=== PATIENT | male | born 1965 | race Caucasian/White ===

== ENCOUNTER 2016-10-22 13:28 | Inpatient (IN) | payer SELFPAY ==
[~2016-10-22] VITALS: Ht 185.4 cm; Wt 129.3 kg
[2016-10-22] MEDS ORDERED: IPRATRPIUM/ALBUTEROL 0.5/2.5MG 3 ML NEBU. NEB ONE (14:30)
--- NOTE | 2016-10-22 14:51 | PHYS DOC ---
Past Medical History Past Medical History: Diabetes-Type II, GERD, Hypertension Past Surgical History: Tonsillectomy, Other Additional Past Surgical Histo: Ortho, heart cath Alcohol Use: Occasionally Drug Use: None Adult General Chief Complaint Chief Complaint: CHEST PAIN-NON CARDIAC NATURE HPI HPI Patient is a 51 year old male who presents with complaint of cough and shortness of breath for the past 2 days. Patient states he first started noticing cough 2 days ago with production of yellow green sputum. Patient states that he started getting problems with pain along the left side of his chest starting today which is present only with cough. Patient has history of COPD. Patient states that he has been trying breathing treatments at home with no relief in symptoms. Patient also states that he has been having subjective fevers, chills, and myalgias associated with his symptoms. Patient denies any recent travel or sick contacts. Due to worsening symptoms patient came to the emergency department for further evaluation. Patient states that he took albuterol earlier this morning with minimal relief in symptoms. Patient denies pain with deep inspiration. Review of Systems Review of Systems Constitutional: Subjective fevers [] Eyes: Denies change in visual acuity, redness, or eye pain [] HENT: Denies nasal congestion or sore throat [] Respiratory: Productive cough, shortness of breath [] Cardiovascular: Chest pain, edema [] GI: Denies abdominal pain, nausea, vomiting, bloody stools or diarrhea [] : Denies dysuria or hematuria [] Musculoskeletal: Body aches [] Integument: Denies rash or skin lesions [] Neurologic: Denies headache, focal weakness or sensory changes [] Current Medications Current Medications Current Medications Medications (Trade) Dose Ordered Sig/Kelsy Start Time Stop Time Status Last Admin Dose Admin Albuterol/ Ipratropium (Duoneb) 3 ml STK-MED ONCE 10/22/16 15:08 10/22/16 15:09 DC Furosemide (Lasix) 60 mg 1X ONCE 10/22/16 16:15 10/22/16 16:16 DC 10/22/16 16:30 60 MG Allergies Allergies Allergies Coded Allergies Type Severity Reaction Last Updated Verified No Known Drug Allergies 01/23/14 No Physical Exam Physical Exam Constitutional: Alert, afebrile, appears in mild to moderate respiratory distress. [] HENT: Normocephalic, atraumatic, bilateral external ears normal, oropharynx moist, no oral exudates, nose normal. [] Eyes: PERRLA, EOMI, conjunctiva normal, no discharge. [] Neck: Normal range of motion, no tenderness, supple, no stridor. [] Cardiovascular: Tachycardia, regular rhythm, no murmur [] Lungs & Thorax: Restricted air movement bilaterally, expiratory wheezes bilaterally, no rales [] Abdomen: Bowel sounds normal, soft, no tenderness, no masses, no pulsatile masses. [] Skin: Warm, dry, no erythema, no rash. [] Back: No tenderness, no CVA tenderness. [] Extremities: No tenderness, no cyanosis, no clubbing, ROM intact, 1+ pedal edema bilaterally. [] Neurologic: Alert and oriented X 3, normal motor function, normal sensory function, no focal deficits noted. [] Current Patient Data Vital Signs Vital Signs Date Time Temp Pulse Resp B/P (MAP) Pulse Ox O2 Delivery O2 Flow Rate FiO2 10/22/16 15:51 98 25 150/87 (108) 97 10/22/16 15:12 Room Air 10/22/16 14:15 98.2 98.2 Lab Values Laboratory Tests Test 10/22/16 14:50 White Blood Count 9.7 x10^3/uL (4.0-11.0) Red Blood Count 4.33 x10^6/uL (4.30-5.70) Hemoglobin 13.4 g/dL (13.0-17.5) Hematocrit 38.3 % (39.0-53.0) L Mean Corpuscular Volume 88 fL (79-100) Mean Corpuscular Hemoglobin 31 pg (25-35) Mean Corpuscular Hemoglobin Concent 35 g/dL (31-37) Red Cell Distribution Width 14.9 % (11.5-14.5) H Platelet Count 209 x10^3/uL (140-400) Neutrophils (%) (Auto) 74 % (31-73) H Lymphocytes (%) (Auto) 16 % (24-48) L Monocytes (%) (Auto) 4 % (0-9) Eosinophils (%) (Auto) 5 % (0-3) H Basophils (%) (Auto) 1 % (0-3) Neutrophils # (Auto) 7.2 x10^3uL (1.8-7.7) Lymphocytes # (Auto) 1.5 x10^3/uL (1.0-4.8) Monocytes # (Auto) 0.4 x10^3/uL (0.0-1.1) Eosinophils # (Auto) 0.5 x10^3/uL (0.0-0.7) Basophils # (Auto) 0.1 x10^3/uL (0.0-0.2) Sodium Level 143 mmol/L (136-145) Potassium Level 3.4 mmol/L (3.5-5.1) L Chloride Level 106 mmol/L (98-107) Carbon Dioxide Level 27 mmol/L (21-32) Anion Gap 10 (6-14) Blood Urea Nitrogen 10 mg/dL (8-26) Creatinine 1.3 mg/dL (0.7-1.3) Estimated GFR (Cockcroft-Gault) 58.0 BUN/Creatinine Ratio 8 (6-20) Glucose Level 176 mg/dL (70-99) H Lactic Acid Level 2.5 mmol/L (0.4-2.0) H Calcium Level 8.9 mg/dL (8.5-10.1) Total Bilirubin 1.1 mg/dL (0.2-1.0) H Aspartate Amino Transferase (AST) 28 U/L (15-37) Alanine Aminotransferase (ALT) 28 U/L (16-63) Alkaline Phosphatase 81 U/L (46-116) Creatine Kinase 175 U/L (39-308) Creatine Kinase MB (Mass) 1.9 ng/mL (0.0-3.6) Creatine Kinase MB Relative Index 1.1 % (0-4) Troponin I Quantitative < 0.017 ng/mL (0.000-0.055) QY-Jbo-Q-Type Natriuretic Peptide 3034 pg/mL (0-124) H Total Protein 7.3 g/dL (6.4-8.2) Albumin 3.7 g/dL (3.4-5.0) Albumin/Globulin Ratio 1.0 (1.0-1.7) Influenza Type A Antigen Negative (NEGATIVE) Influenza Type B Antigen Negative (NEGATIVE) Laboratory Tests 10/22/16 14:50 Laboratory Tests 10/22/16 14:50 EKG EKG Interpreted by me: Heart rate 110, sinus tachycardia, normal intervals, normal axis, no acute ST/T-wave abnormalities present [] Radiology/Procedures Radiology/Procedures [facility] [address] [place] [address] IMAGING REPORT Signed PATIENT: JOAN ALLRED ACCOUNT: [id number] : 1965 LOCATION: ER AGE: 51 SEX: M EXAM STATUS: REG ER ORD. PHYSICIAN: ADRIENNE PEREZ MD REASON: cough and shortness of breath for 2 days PROCEDURE: CHEST PA & LATERAL Examination: 2 views of the chest History: History of cough, chest tightness Comparison: 02/25/2015 Findings: Mild cardiomegaly is unchanged. Mild prominent appearing bilateral interstitial lung markings similar to prior exam , probably due to chronic bronchitis. Impression: Mild prominent appearing bilateral interstitial lung markings probably chronic bronchitis grossly similar to prior exam. DICTATED and SIGNED BY: ISABEL THAYER MD DATE: 10/22/16 1505 CC: ADRIENNE PEREZ MD; TESS LESTER MD ~ [] Course & Med Decision Making Course & Med Decision Making Pertinent Labs and Imaging studies reviewed. (See chart for details) The patient was given DuoNeb breathing treatments with no improvement in symptoms. Patient's chest x-ray, exam, and blood work are consistent with acute on chronic congestive heart failure. Patient given IV Lasix in the emergency department. Due to minimal improvement in symptoms, the patient will require admission to the hospital for continued diuresis and further evaluation. I spoke with Dr. Aguilar who accepted care patient in hospital. Consults were placed to Dr. Haq of cardiology and Dr. Almanzar of pulmonology to follow patient in hospital. Dragon Disclaimer Dragon Disclaimer This electronic medical record was generated, in whole or in part, using a voice recognition dictation system. Departure Departure Impression: Primary Impression: Acute on chronic congestive heart failure Additional Impressions: COPD (chronic obstructive pulmonary disease) Elevated lactic acid level Disposition: ADMITTED INPATIENT Admitting Physician: Other Condition: STABLE Referrals: TESS LESTER MD (PCP) Problem Qualifiers Primary Impression: Acute on chronic congestive heart failure Congestive heart failure type: unspecified congestive heart failure type Qualified Codes: I50.9 - Heart failure, unspecified Additional Impressions: COPD (chronic obstructive pulmonary disease) COPD type: COPD with acute exacerbation Qualified Codes: J44.1 - Chronic obstructive pulmonary disease with (acute) exacerbation ADRINENE PEREZ MD October 22, 2016 14:51
[2016-10-22 15:06] LABS: BASO # 0.1 x10^3/uL (0.0-0.2); BASO % 1 % (0-3); EOS % 5 % (0-3); HEMATOCRIT 38.3 % (39.0-53.0); HEMOGLOBIN 13.4 g/dL (13.0-17.5); LYMPH # 1.5 x10^3/uL (1.0-4.8); LYMPH % 16 % (24-48); MEAN CORPUSCULAR HEMOGLOBIN 31 pg (25-35); MEAN CORPUSCULAR HGB CONC 35 g/dL (31-37); MEAN CORPUSCULAR VOLUME 88 fL (79-100); MONO % 4 % (0-9); NEUT % 74 % (31-73); PLATELET COUNT 209 x10^3/uL (140-400); RED BLOOD COUNT 4.33 x10^6/uL (4.30-5.70); RED CELL DISTRIBUTION WIDTH 14.9 % (11.5-14.5); WHITE BLOOD COUNT 9.7 x10^3/uL (4.0-11.0)
[2016-10-22] MEDS ORDERED: IPRATRPIUM/ALBUTEROL 0.5/2.5MG 3 ML NEBU. ONE (15:08)
--- NOTE | 2016-10-22 15:09 | RAD ---
Examination: 2 views of the chest History: History of cough, chest tightness Comparison: 02/25/2015 Findings: Mild cardiomegaly is unchanged. Mild prominent appearing bilateral interstitial lung markings similar to prior exam , probably due to chronic bronchitis. Impression: Mild prominent appearing bilateral interstitial lung markings probably chronic bronchitis grossly similar to prior exam.
[2016-10-22 15:16] LABS: CALCIUM 8.9 mg/dL (8.5-10.1); CREATININE 1.3 mg/dL (0.7-1.3); POTASSIUM 3.4 mmol/L (3.5-5.1)
--- NOTE | 2016-10-22 15:20 | EKG ---
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
[2016-10-22 15:23] LABS: OBC FLU VALID
[2016-10-22 15:30] LABS: ALBUMIN 3.7 g/dL (3.4-5.0); CKMB MASS 1.9 ng/mL (0.0-3.6); TOTAL BILIRUBIN 1.1 mg/dL (0.2-1.0); TOTAL PROTEIN 7.3 g/dL (6.4-8.2)
[2016-10-22] MEDS ORDERED: FUROSEMIDE 100 MG/10 ML VIAL. IVP ONE (16:15)
[2016-10-22] MEDS ORDERED: ONDANSETRON PF 4 MG/2 ML VIAL. IV PRN (17:45)
[2016-10-22] MEDS ORDERED: ACETAMINOPHEN 325 MG TABLET. PO PRN (17:45)
[2016-10-22 18:11] VITALS: BP 140/84
[2016-10-22] MEDS ORDERED: FURO40TA4 PO (18:18)
[2016-10-22] MEDS ORDERED: ALBU0.63 NEB (18:18)
[2016-10-22] MEDS ORDERED: OMEP40CA5 PO (18:19)
[2016-10-22 19:43] VITALS: BP 131/87
[2016-10-22] MEDS: NICOTINE 21MG PATCH. TD SCH (19:58)
[2016-10-22] MEDS ORDERED: NON FORMULARY ITEM (Albuterol Sulfate (Albuterol Sulfate Neb Soln) 0.63 MG) NEB PRN (20:00)
[2016-10-22] MEDS ORDERED: ALBUTEROL SULFATE 2.5 MG/3 ML NEBU. NEB PRN (20:00)
[2016-10-22] MEDS: IPRATRPIUM/ALBUTEROL 0.5/2.5MG 3 ML NEBU. NEB SCH (20:09)
[2016-10-22] MEDS ORDERED: AZITHROMYCIN 250 MG TABLET. PO ONE (20:30)
--- NOTE | 2016-10-22 21:22 | HP ---
ADMIT DATE: 10/22/2016 CHIEF COMPLAINT: Chest pain, shortness of breath. HISTORY OF PRESENT ILLNESS: The patient is a 51-year-old obese smoker who presented to the Emergency Room with 2-day history of cough and shortness of breath. He relates that he has noted yellow-greenish sputum production, left side of his chest hurts a bit more. He relates that he frequently ends up in the Emergency Room albeit at different hospitals and typically gets IV Lasix with significant improvement of his symptoms. He states that "you guys have better Lasix that always makes me pee immediately." He knows he has CHF and COPD, but has no intentions of ever changing his diet including preferred barbecue and fried foods or stop smoking. PAST MEDICAL HISTORY: CHF, diabetes, hypertension, GERD, CAD. FAMILY HISTORY: Positive for heart failure in mother. SOCIAL HISTORY: Continues to smoke about half a pack a day. ALLERGIES: No known drug allergies. HOME MEDICATIONS: Reconciled with MAR. REVIEW OF SYSTEMS: Breathing is much improved since his IV Lasix in the Emergency Room. He is trying to order a pizza and soft drink from outside. PHYSICAL EXAMINATION: VITAL SIGNS: From today show a blood pressure of 150/87, heart rate of 98, respiratory rate at 25. He is afebrile. GENERAL: This is an obese 51-year-old gentleman, awake, alert, in no acute distress. HEENT: Shows no scleral icterus. NECK: Supple, without any JVD. LUNGS: With wheezes bilaterally. HEART: Tachycardic. ABDOMEN: Obese, positive bowel sounds, organs could not be palpated. EXTREMITIES: Show 1+ edema. SKIN: Warm, soft and dry. LABORATORY DATA: CBC with a WBC of 9.7, hemoglobin 13.4, platelets of 209. BUN and creatinine 10 and 1.3. Potassium at 3.4. LFTs within normal. ProBNP 3034. Initial troponin negative. Albumin at 3.7. Flu A and B are negative. IMAGING: Chest x-ray obtained shows mild cardiomegaly which is unchanged, mild prominent appearing bilateral interstitial lung mass, marking similar to prior exam. ASSESSMENT AND PLAN: The patient is a 51-year-old gentleman with apparently known CHF, although details unknown, who presents with shortness of breath. He did receive Lasix in the Emergency Room with some improvement of his symptoms. Cardiac as well as Pulmonary consult has been requested by ER. We will obtain echo. If symptoms are improved by tomorrow, plan on discharge to follow up with his regular healthcare management. SHRUTHI GAYTAN MD DR: UR/nts JOB#: [id number] / [id number] JUANA
[2016-10-22 22:15] VITALS: BP 135/97
[2016-10-23] VITALS (13 sets, daily range): BP systolic 114–140; BP diastolic 71–92
--- NOTE | 2016-10-23 00:14 | ACF ---
Admission Forms Criteria HEART FAILURE: COMMON COMPLICATIONS Clinical Indications for Inpatient Care (Place 'X' for any and all applicable criteria): Ongoing inpatient care may be indicated for heart failure with ANY ONE of the following (1)(2)(3)(4)(5): [ ]I. Ongoing need for care for primary condition requiring frequent therapy adjustments because of changes in cardiac function (eg, drug dosage changes for drugs that are renally metabolized) [ ]II. New-onset heart failure [ ]III. Heart failure with decreased urine output not responsive to attempts to optimize volume status [ ]IV. Acute cardiac ischemia causing or associated with failure [X ]V. Complications of heart failure, including ANY ONE of the following: [ ]a) Pericardial effusion [ ]b) Symptomatic pleural effusion [ ]c) O2 saturation <90% or PO2 < 60 mm Hg (8.0 kPa) on room air or require baseline supplemental O2 [X ]d) Tachypnea [X ]e) Dyspnea [ ]f) Syncope [ ]g) Change in mental status [ ]h) Acute renal insufficiency that is severe (reduction of more than 50% in estimated glomerular filtration rate from baseline) or progressive reduction of more than 25% in estimated glomerular filtration rate from baseline, with creatinine continuing to rise) [ ]i) Hemodynamic instability [ ]j) Anasarca [ ]k) Clinically significant metabolic abnormalities due to heart failure (eg, new-onset metabolic acidosis) Extended stay beyond goal length of stay for primary condition may be needed until ALL of the following are present(1)(3): [ ]a) Stable and effective diuretic regimen established (or patient on stable dialysis regimen if in chronic renal failure) [ ]b) Breathing comfortably at rest [ ]c) Saturation of arterial oxygen greater than 90% or at acceptable baseline [ ]d) Pulmonary edema absent or improved [ ]e) Hemodynamic stability [ ]f) Volume status acceptable on oral medication [ ]g) Peripheral or sacral edema absent or improved [ ]h) Renal function stable and manageable at a lower level of care [ ]i) Complications (eg, pleural effusion) resolved or manageable at a lower level of care [ ]j) Patient or caregiver has received written discharge instructions or educational material addressing activity level, diet, discharge medications, follow-up appointment, weight monitoring, and what to do if symptoms worsen The original [facility] content created by [employer] has been revised. The portions of the content which have been revised are identified through the use of italic text or in bold, and [facility] has neither reviewed nor approved the modified material.All other unmodified content is copyright [facility]. Please see references footnoted in the original [facility] edition 2016 Admission Criteria Met?: Yes JJ FONG October 23, 2016 00:14
[2016-10-23 05:05] LABS: BASO # 0.1 x10^3/uL (0.0-0.2); BASO % 1 % (0-3); EOS % 5 % (0-3); HEMATOCRIT 40.5 % (39.0-53.0); HEMOGLOBIN 13.8 g/dL (13.0-17.5); LYMPH # 2.2 x10^3/uL (1.0-4.8); LYMPH % 23 % (24-48); MEAN CORPUSCULAR HEMOGLOBIN 31 pg (25-35); MEAN CORPUSCULAR HGB CONC 34 g/dL (31-37); MEAN CORPUSCULAR VOLUME 90 fL (79-100); MONO % 6 % (0-9); NEUT % 65 % (31-73); PLATELET COUNT 221 x10^3/uL (140-400); RED BLOOD COUNT 4.51 x10^6/uL (4.30-5.70); RED CELL DISTRIBUTION WIDTH 15.3 % (11.5-14.5); WHITE BLOOD COUNT 9.2 x10^3/uL (4.0-11.0)
[2016-10-23 05:13] LABS: CALCIUM 9.3 mg/dL (8.5-10.1); CREATININE 1.4 mg/dL (0.7-1.3); GFR 53.2; POTASSIUM 3.8 mmol/L (3.5-5.1)
[2016-10-23] MEDS: PANTOPRAZOLE 40 MG TABLET.DR. PO SCH (07:30)
[2016-10-23] MEDS: IPRATRPIUM/ALBUTEROL 0.5/2.5MG 3 ML NEBU. NEB SCH ×3 (08:00→15:51)
[2016-10-23] MEDS: NICOTINE 21MG PATCH. TD SCH (08:24)
[2016-10-23] MEDS ORDERED: SULFUR HEXAFLUORIDE MICROSPHR 25 MG VIAL. IVP ONE ×2 (08:48→09:15)
[2016-10-23] MEDS ORDERED: FUROSEMIDE 40 MG TABLET. PO SCH (09:00)
[2016-10-23] MEDS ORDERED: NICOTINE 21MG PATCH. TD SCH (09:00)
--- NOTE | 2016-10-23 09:41 | CARD ---
APPROVED REPORT EXAM: Two-dimensional and M-mode echocardiogram with Doppler, color Doppler with contrast. Other Information Quality : Technically Limited Rhythm : NSRTechnically limited study due to body habitus. INDICATION Congestive Heart Failure Echo Enhancing Agent Indication: Endocardial border delineation Agent/Amount Used: Lumason 3mL 2D DIMENSIONS RVDd3.3 (2.9-3.5cm)Left Atrium(2D)4.7 (1.6-4.0cm) IVSd1.3 (0.7-1.1cm)Aortic Root(2D)3.4 (2.0-3.7cm) LVDd6.4 (3.9-5.9cm)LVOT Diameter2.4 (1.8-2.4cm) PWd1.3 (0.7-1.1cm)LVDs6.2 (2.5-4.0cm) FS (%) 4.3 %SV20.1 ml LVEF(%)9.5 (>50%) Aortic Valve AoV Peak Nathan.130.4cm/sAoV VTI21.2cm AO Peak GR.6.8mmHgLVOT Peak Nathan.99.4cm/s AO Mean GR.4mmHgAVA (VMAX)3.42cm2 Mitral Valve MV E Ffvwdxnp829.0cm/sMV E Peak Gr.6mmHg MV DECEL [id number] A Kejftiqj99.0cm/s MV E Mean Gr.2mmHgMV YOT37wu E/A Ratio3.3MV A Fthuqaqu286ed MVA (PHT)5.99cm2 Tricuspid Valve TR P. Xyvfyqmw786um/sRAP LWNSDPJP5oxMh TR Peak Gr.85pmZwWOOQ33svAp LEFT VENTRICLE The Left Ventricle is mildly dilated. There is borderline to mild concentric left ventricular hypertr ophy. Left ventricle systolic function is severely impaired. The Ejection Fraction is 10-15%. There i s severe global hypokinesis of the left ventricle. Tissue Doppler imaging reveals severe left ventric ular diastolic dysfunction. There is no ventricular septal defect visualized. RIGHT VENTRICLE The right ventricle is normal size. The right ventricular systolic function is mildly decreased. ATRIA The left atrium is mildly dilated. The right atrium size is normal. The interatrial septum is intact with no evidence for an atrial septal defect or patent foramen ovale as noted on 2-D or Doppler imagi ng. AORTIC VALVE The aortic valve is normal in structure and function. The aortic valve is trileaflet. Doppler and Col or Flow revealed no significant aortic regurgitation. There is no significant aortic valvular stenosi s. MITRAL VALVE The mitral valve is normal in structure and function. There is no mitral valve stenosis. Doppler and Color Flow revealed trace to mild mitral regurgitation. TRICUSPID VALVE The tricuspid valve is normal in structure and function. Doppler and Color Flow revealed trace tricus pid regurgitation. The PA pressure was estimated at 29 mmHg. There is no tricuspid valve stenosis. PULMONIC VALVE The pulmonic valve is not well visualized. Doppler and Color Flow revealed mild pulmonic valvular reg urgitation. There is no pulmonic valvular stenosis. GREAT VESSELS The aortic root is normal in size. The IVC is dilated and collapses >50% with inspiration. PERICARDIAL EFFUSION There is no evidence of significant pericardial effusion. Critical Notification Critical Value: No <Conclusion> Left ventricle systolic function is severely impaired. The Ejection Fraction is 10-15%. There is severe global hypokinesis of the left ventricle. Tissue Doppler imaging reveals severe left ventricular diastolic dysfunction.
--- NOTE | 2016-10-23 10:15 | PDOC2 ---
CLAUS PACHECO SHIPPING WEIGHER 10/23/16 1015: CARDIAC CONSULT DATE OF CONSULT Date of Consult DATE: 10/23/16 TIME: 10:14 REASON FOR CONSULT Reason for Consult: CHF REFERRING PHYSICIAN Referring Physician: Sybil SOURCE Source: Chart review, Patient HISTORY OF PRESENT ILLNESS HISTORY OF PRESENT ILLNESS This is a pleasant 51 yo male admitted for complains of SOA and chest pain. Reports that he was being followed by Dr. Dickson his PCP but he has not seen any physician since 2014. Reports that he also had cardiac cath in 2014 and was told that he did not have any blockage and that his heart was strong. Reports that he does have some intermittent SOA and he also has COPD but has not been using his PRN inhalers. Last Saturday he felt different and felt SOA with short distnace ambulation then finally even at rest. Positive for orthopnea, PND and has been having insomnia. Also he has been having mid chest tightness and left arm tingling. This has been intermittent since Saturday. Also woke up on Saturday with diaphoreis and occasional palpitations feeling mainly when walking. Feels dizzy sometimes. His legs has become significantly swollen and has been feeling bloated. Denies any nausea or vomiting. He has HTN and HLP but has not taken any medications since both have been controlled. He denies DM2. No prior VTE, falls or any injury. He continue to smoke tobacco. PAST MEDICAL HISTORY Cardiovascular: CHF, HTN, Hyperlipidemia Pulmonary: Asthma, COPD, Other (OMAR) CENTRAL NERVOUS SYSTEM: Other (No pertinent history) GI: GERD Heme/Onc: No pertinent hx Hepatobiliary: No pertinent hx Psych: No pertinent hx Musculoskeletal: Osteoarthritis Rheumatologic: No pertinent hx Infectious disease: No pertinent hx ENT: No pertinent hx Renal/: No pertinent hx Endocrine: No pertinent hx Dermatology: Other (extensive chun) PAST SURGICAL HISTORY Past Surgical History: Other (Cardiac cath 2014 at [facility], no blockage per pt. ) FAMILY HISTORY Family History: Coronary Artery Disease (father and mother) SOCIAL HISTORY Smoke: 2 packs per day ALCOHOL: occassional Drugs: None Lives: with Family CURRENT MEDICATIONS CURRENT MEDICATIONS Current Medications Medications (Trade) Dose Ordered Sig/Kelsy Route PRN Reason Start Time Stop Time Status Last Admin Dose Admin Albuterol/ Ipratropium (Duoneb) 6 ml 1X ONCE NEB 10/22/16 14:30 10/22/16 14:36 DC 10/22/16 14:30 Furosemide (Lasix) 60 mg 1X ONCE IVP 10/22/16 16:15 10/22/16 16:16 DC 10/22/16 16:30 Albuterol/ Ipratropium (Duoneb) 3 ml RTQID NEB 10/22/16 20:00 10/23/16 19:59 10/23/16 08:00 Furosemide (Lasix) 40 mg DAILY PO 10/23/16 09:00 10/23/16 08:23 Nicotine (Nicoderm Cq 21mg) 1 patch DAILY TD 10/22/16 20:00 10/23/16 08:24 Azithromycin (Zithromax) 500 mg 1X ONCE PO 10/22/16 20:30 10/22/16 20:31 DC 10/22/16 21:08 Sulfur Hexafluoride Microspheres (Lumason) 25 mg 1X ONCE IVP 10/23/16 09:15 10/23/16 09:16 DC 10/23/16 09:07 ALLERGIES ALLERGIES: Coded Allergies: No Known Drug Allergies (Unverified , 01/23/14) ROS Review of System 14 point ROS evaluated with pertinent positives noted per HPI PHYSICAL EXAM General: Alert, Oriented X3, Cooperative, No acute distress HEENT: Atraumatic, Mucous membr. moist/pink Lungs: Clear to auscultation, Normal air movement Heart: Regular rate (SR), Normal S1, Normal S2, Other (distant heart sounds) Extremities: No cyanosis, Other (2+ bilateral LE pitting edema) Skin: No breakdown, No significant lesion Neuro: Normal speech, Sensation intact Psych/Mental Status: Mental status NL, Mood NL MUSCULOSKELETAL: Osteoarthritic changes both hands VITALS VITALS Vital Signs Date Time Temp Pulse Resp B/P (MAP) Pulse Ox O2 Delivery O2 Flow Rate FiO2 10/23/16 08:04 Room Air 10/23/16 07:00 98.6 95 18 140/74 (96) 93 98.6 LABS Lab: Laboratory Tests Test 10/22/16 14:50 10/22/16 18:25 10/23/16 03:30 White Blood Count 9.7 x10^3/uL (4.0-11.0) 9.2 x10^3/uL (4.0-11.0) Red Blood Count 4.33 x10^6/uL (4.30-5.70) 4.51 x10^6/uL (4.30-5.70) Hemoglobin 13.4 g/dL (13.0-17.5) 13.8 g/dL (13.0-17.5) Hematocrit 38.3 % (39.0-53.0) 40.5 % (39.0-53.0) Mean Corpuscular Volume 88 fL (79-100) 90 fL (79-100) Mean Corpuscular Hemoglobin 31 pg (25-35) 31 pg (25-35) Mean Corpuscular Hemoglobin Concent 35 g/dL (31-37) 34 g/dL (31-37) Red Cell Distribution Width 14.9 % (11.5-14.5) 15.3 % (11.5-14.5) Platelet Count 209 x10^3/uL (140-400) 221 x10^3/uL (140-400) Neutrophils (%) (Auto) 74 % (31-73) 65 % (31-73) Lymphocytes (%) (Auto) 16 % (24-48) 23 % (24-48) Monocytes (%) (Auto) 4 % (0-9) 6 % (0-9) Eosinophils (%) (Auto) 5 % (0-3) 5 % (0-3) Basophils (%) (Auto) 1 % (0-3) 1 % (0-3) Neutrophils # (Auto) 7.2 x10^3uL (1.8-7.7) 5.9 x10^3uL (1.8-7.7) Lymphocytes # (Auto) 1.5 x10^3/uL (1.0-4.8) 2.2 x10^3/uL (1.0-4.8) Monocytes # (Auto) 0.4 x10^3/uL (0.0-1.1) 0.5 x10^3/uL (0.0-1.1) Eosinophils # (Auto) 0.5 x10^3/uL (0.0-0.7) 0.5 x10^3/uL (0.0-0.7) Basophils # (Auto) 0.1 x10^3/uL (0.0-0.2) 0.1 x10^3/uL (0.0-0.2) Sodium Level 143 mmol/L (136-145) 142 mmol/L (136-145) Potassium Level 3.4 mmol/L (3.5-5.1) 3.8 mmol/L (3.5-5.1) Chloride Level 106 mmol/L (98-107) 104 mmol/L (98-107) Carbon Dioxide Level 27 mmol/L (21-32) 31 mmol/L (21-32) Anion Gap 10 (6-14) 7 (6-14) Blood Urea Nitrogen 10 mg/dL (8-26) 12 mg/dL (8-26) Creatinine 1.3 mg/dL (0.7-1.3) 1.4 mg/dL (0.7-1.3) Estimated GFR (Cockcroft-Gault) 58.0 53.2 BUN/Creatinine Ratio 8 (6-20) Glucose Level 176 mg/dL (70-99) 127 mg/dL (70-99) Lactic Acid Level 2.5 mmol/L (0.4-2.0) 1.7 mmol/L (0.4-2.0) Calcium Level 8.9 mg/dL (8.5-10.1) 9.3 mg/dL (8.5-10.1) Total Bilirubin 1.1 mg/dL (0.2-1.0) Aspartate Amino Transf (AST/SGOT) 28 U/L (15-37) Alanine Aminotransferase (ALT/SGPT) 28 U/L (16-63) Alkaline Phosphatase 81 U/L (46-116) Creatine Kinase 175 U/L (39-308) Creatine Kinase MB (Mass) 1.9 ng/mL (0.0-3.6) Creatine Kinase MB Relative Index 1.1 % (0-4) Troponin I Quantitative < 0.017 ng/mL (0.000-0.055) KE-Ioo-X-Type Natriuretic Peptide 3034 pg/mL (0-124) Total Protein 7.3 g/dL (6.4-8.2) Albumin 3.7 g/dL (3.4-5.0) Albumin/Globulin Ratio 1.0 (1.0-1.7) Influenza Type A Antigen Negative (NEGATIVE) Influenza Type B Antigen Negative (NEGATIVE) ECHOCARDIOGRAM ECHOCARDIOGRAM <Conclusion> Left ventricle systolic function is severely impaired. The Ejection Fraction is 10-15%. There is severe global hypokinesis of the left ventricle. Tissue Doppler imaging reveals severe left ventricular diastolic dysfunction. DATE: 10/23/16 0940 ASSESSMENT/PLAN ASSESSMENT/PLAN 1. Acute systolic/diastolic CHF: NYHA 2-3 2. Cardiomyopathy: New. EKG SR with nonspecific ST-T wave changes with IVCD. EF 10-15%. 3. Chest pain 4. AECOPD: accentuated by CHF. Consult pulmonary 5. OMAR: noted in 2014 but would not use CPAP. 6. HTN: controlled. Unmedicated 7. HLP 8. GERD 9. Tobaccoism: remains with 2ppd 10. Obesity 11. Suspect CKD: Cr 1.4 Recommendations 1. Will lay flat and if tolerated then will proceed with [facility] today. Risks and benefits explained and agreeable 2. Repeat troponin, TSH, Mg. 3. Continue with lasix therapy. K supplement. ASA 4. Start on BB, will hold ACEi, likely candidate for entresto. 5. Will start on statin per lipid level. 6. Smoking cessation, lifestyle modifications discussed. Problems: HENOK SALINAS MD 10/23/16 1436: CARDIAC CONSULT ALLERGIES ALLERGIES: Coded Allergies: No Known Drug Allergies (Unverified , 01/23/14) ASSESSMENT/PLAN ASSESSMENT/PLAN Patient seen and examined. Agree with DENTAL SURGEON's assessment and plan. Chest pain concerning for unstable angina. Acute systolic heart failure improving with diuresis with Lasix. 2-D echo showed LVEF 10-15%. Plan for cardiac catheterization and possible angioplasty today. Risks and benefits were explained and he is agreeable. We will optimize medical therapy for his cardiomyopathy and repeat 2-D echo in 3 months. Thank you for your consultation. Problems: CLAUS PACHECO APRN October 23, 2016 10:15 HENOK SALINAS MD October 23, 2016 14:36
[2016-10-23 11:23] LABS: MAGNESIUM 2.3 mg/dL (1.8-2.4)
[2016-10-23 11:25] LABS: CHOLESTEROL/HDL RATIO 7.6
--- NOTE | 2016-10-23 11:50 | CONS ---
DATE OF CONSULTATION: ATTENDING PHYSICIAN: Akilah Aguilar MD. REASON FOR CONSULTATION: Dyspnea. HISTORY OF PRESENT ILLNESS: The patient is a 51-year-old male who has history of tobacco use for 26 years, at 2 packs per day. He also recently had marijuana use as well. He presented to the hospital with complaint of shortness of breath. He also had a 2-day history of a cough with some green sputum production. He had some subjective chills as well. The patient was seen in the Emergency Room. A chest x-ray was reviewed by me. It was consistent with mild interstitial edema. He had further workup done and an echocardiogram revealed an ejection fraction of 10-15%. Currently, he is requiring oxygen via nasal cannula. No history of deep vein thrombosis or pulmonary embolism. He said he previously was told that he had an ejection fraction, which was normal and had a cardiac catheterization done at [facility]. PAST MEDICAL HISTORY: Significant for history of congestive heart failure, diabetes, hypertension, GERD. FAMILY HISTORY: Positive for heart failure in the mother. SOCIAL HISTORY: Smoker for 26 years. ALLERGIES: None. MEDICATIONS: Reviewed as listed in the MRAD. ALLERGIES: None. REVIEW OF SYSTEMS: Discussed in history of present illness. PHYSICAL EXAMINATION: VITAL SIGNS: Stable. Pulse ox 93% on room air. NECK: Supple. LUNGS: Diminished breath sounds. CARDIOVASCULAR: Regular. ABDOMEN: Soft. EXTREMITIES: With no pitting edema. LABORATORY DATA: Reviewed. White cell count 9.2, BUN 12, creatinine 1.4. IMPRESSION: 1. Dyspnea with acute hypoxic respiratory failure related to acute systolic heart failure. The patient's ejection fraction is 10-15%. 2. Possible acute bronchitis. 3. Underlying tobaccoism, suspect chronic obstructive pulmonary disease. RECOMMENDATIONS: 1. Continue with diuresis. 2. Add empiric doxycycline. 3. Cardiac catheterization per Cardiology to rule out any coronary artery disease. 4. Further recommendations after review of cardiac catheterization. HAWK GONZÁLES MD DR: STEFANIE/kirk JOB#: [id number] / [id number]
[2016-10-23] MEDS: DOXYCYCLINE HYCLATE 100 MG TABLET PO SCH ×2 (12:00→20:50)
[2016-10-23] MEDS ORDERED: ASPIRIN ENTERIC COATED 81 MG TABLET.DR. PO SCH (12:00)
[2016-10-23] MEDS: POTASSIUM CHLORIDE 20 MEQ TABLET.ER. PO SCH (12:00)
[2016-10-23] MEDS: METOPROLOL TART IMMED RELEASE 25 MG TABLET. PO SCH ×2 (12:35→20:50)
[2016-10-23] MEDS ORDERED: LIDOCAINE 2% 20 ML VIAL. ONE (13:24)
[2016-10-23] MEDS ORDERED: IODIXANOL 320 MG/ML 100 ML VIAL. ONE ×2 (13:24→14:08)
[2016-10-23] MEDS ORDERED: NITROGLYCERIN 200 MCG/2 ML SYRINGE FOR CATH/VASC LAB. ONE (13:39)
[2016-10-23] MEDS ORDERED: HEPARIN for IV BOLUS 10,000 UNIT/10 ML VIAL. ONE (13:39)
[2016-10-23] MEDS ORDERED: MIDAZOLAM HCL/PF 5 MG/5 ML VIAL. ONE (13:39)
[2016-10-23] MEDS ORDERED: fentaNYL PF VIAL 100 MCG/2 ML VIAL ONE (13:39)
[2016-10-23] MEDS ORDERED: VERAPAMIL 5 MG/2 ML VIAL. ONE (13:39)
[2016-10-23] MEDS ORDERED: NITROGLYCERIN 200 MCG/2 ML SYRINGE FOR CATH/VASC LAB. IART ONE (14:00)
[2016-10-23] MEDS ORDERED: LIDOCAINE 2% 20 ML VIAL. IJ ONE (14:00)
[2016-10-23] MEDS ORDERED: MIDAZOLAM HCL/PF 5 MG/5 ML VIAL. IV ONE (14:00)
[2016-10-23] MEDS ORDERED: HEPARIN for IV BOLUS 10,000 UNIT/10 ML VIAL. IART ONE (14:00)
[2016-10-23] MEDS ORDERED: fentaNYL PF VIAL 100 MCG/2 ML VIAL IV ONE (14:00)
[2016-10-23] MEDS ORDERED: IODIXANOL 320 MG/ML 100 ML VIAL. IART ONE (14:00)
[2016-10-23] MEDS ORDERED: VERAPAMIL 5 MG/2 ML VIAL. IART ONE (14:00)
[2016-10-23] MEDS ORDERED: BIVALIRUDIN 250 MG VIAL. IV ONE ×2 (14:08→14:30)
[2016-10-23] MEDS ORDERED: ASPIRIN CHEWABLE 81 MG TABLET. PO ONE (14:30)
--- NOTE | 2016-10-23 14:30 | PDOC ---
MODERATE SEDATION ASSESSMENT RISKS/ALTERNATIVES Risks/Alternatives Risks and alternatives of this type of sedation and procedure discussed with: RISK/ALTERNATIVES: Patient H & P ON CHART H & P H & P on chart and reviewed for co-morbid conditions and appropriate labs. H&P ON CHART: Yes STATUS PREG STATUS ASSESSED: N/A MEDS/ALLERGIES REVIEWED Meds/Allergies Reviewed Medications and Allergies including time and route of recently administered narcotics and sedatives. MEDS/ALLERGIES REVIEWED: Yes ASA RATING ASA RATING: II AIRWAY ASSESSMENT Airway Assessment Airway patency, oral function limitations, presence of caps, crowns, dentures, partials, and ability to extend neck assessed. AIRWAY ASSESSMENT: Yes MALLAMPATI SCORE MALLAMPATI SCORE: II PRE-SEDATION ASSESSMENT PRE-SEDATION ASSESSMENT: Yes HENOK SALINAS MD October 23, 2016 14:30
[2016-10-23] MEDS: IV 1/2 NORMAL SALINE 1,000 ML IV SCH (14:39)
[2016-10-23] MEDS ORDERED: NITROGLYCERIN SUBLINGUAL 0.4 MG BOTTLE OF 25. SL PRN (14:45)
[2016-10-23] MEDS ORDERED: CLOPIDOGREL BISULFATE 75 MG TABLET PO ONE (14:45)
[2016-10-23] MEDS ORDERED: ACETAMINOPHEN 325 MG TABLET. PO PRN (14:45)
--- NOTE | 2016-10-23 14:50 | CARD ---
APPROVED REPORT Procedure(s) performed: 1. Left heart catheterization, selective coronary angiography and left ventr iculography via right transradial approach 2. Successful PCI/stent placement to the left anterior descending artery INDICATION The indication(s) include : unstable angina , Acute systolic heart failure. PROCEDURE NARRATIVE After explaining the risks, benefits and alternative options, informed consent was obtained from brisa ent. Patient was brought to the cardiac Media Relations Manager and right wrist was prepped and draped in the usual fashion after confirming a positive modified Thomas's test. Arterial access was obtained [facility] the [facility] t radial artery and a 6 Spanish sheath was inserted. 6 Spanish Jaron catheter was used to perform antonio ective angiography of the left and right coronary arteries. LVEDP and transaortic gradients were luis m ured. Left ventriculography was not performed due to recent non-invasive assessment of ejection fract ion (10-15%) with echocardiogram. The following findings were noted. FINDINGS 1. Hemodynamics: Left ventricular end-diastolic pressure of 25 mmHg. No pullback gradient across th e aortic valve. 2. Coronary angiography: a. The left main coronary artery arose from the left sinus of Valsalva, gave rise to the left anteri or descending, ramus intermedius and left circumflex arteries and did not show any significant stenos is. b. The left anterior descending artery showed 90% stenosis involving the midsegment. There is a smal l-caliber second diagonal branch arising from this segment that showed 90% proximal segment stenosis. c. The ramus intermedius artery did not show any significant stenosis. d. The left circumflex artery showed 40% stenosis involving the obtuse marginal branch. e. The right coronary artery was a large and dominant vessel arising from the right sinus of Valsalv a that did not show any significant stenosis. INTERVENTION The left main coronary artery was engaged with a 6 Spanish XB 3.5 guide catheter and the stenosis in t he midsegment of the left anterior descending artery was crossed with a 0.014 inch Workable deepthi dewire. This was treated successfully with a 3.0 x 23 mm MultiLink vision stent. Follow-up angiograph y showed resolution of the stenosis to 0% with JOELLE-3 distal flow. Patient tolerated the procedure we ll. Hemostasis was achieved using TR band. There were no immediate complications. Conclusion 1. Severe single-vessel coronary artery disease 2. Successful PCI/stent placement to the left anterior descending artery Recommendations 1. Aspirin 325 mg daily 2. Plavix 75 mg daily for at least 4 weeks and preferably one year 3. Cardiovascular risk factor modification including smoking cessation 3. Optimize medical therapy for cardiomyopathy and repeat echo in 3 months
--- NOTE | 2016-10-23 14:54 | PDOC ---
PROGRESS NOTES Chief Complaint Chief Complaint Acute hypoxic respir failure ASSESSMENT AND PLAN: 1. CHF exacerbation: severe systolic (EF 10-15%) and diastolic dysfxn. IV lasix 2. CAD: cath today. 3. Poss acute bronchitis: appreciate Dr Almanzar's input. added doxy empirically History of Present Illness History of Present Illness breathing improved. no new issues Vitals Vitals Vital Signs Date Time Temp Pulse Resp B/P (MAP) Pulse Ox O2 Delivery O2 Flow Rate FiO2 10/23/16 14:34 70 10/23/16 14:33 16 95 Room Air 10/23/16 12:35 140/74 10/23/16 11:30 98.3 2.0 98.3 Physical Exam General: Alert, Oriented X3, Cooperative, No acute distress Heart: Regular rate, Other (distant heart sounds) Lungs: Clear Abdomen: Normal bowel sounds Extremities: No cyanosis, Other (2+ bilateral LE pitting edema) Skin: No significant lesion Labs LABS Laboratory Tests Test 10/22/16 14:50 10/22/16 18:25 10/23/16 03:30 White Blood Count 9.7 x10^3/uL (4.0-11.0) 9.2 x10^3/uL (4.0-11.0) Red Blood Count 4.33 x10^6/uL (4.30-5.70) 4.51 x10^6/uL (4.30-5.70) Hemoglobin 13.4 g/dL (13.0-17.5) 13.8 g/dL (13.0-17.5) Hematocrit 38.3 % (39.0-53.0) 40.5 % (39.0-53.0) Mean Corpuscular Volume 88 fL (79-100) 90 fL (79-100) Mean Corpuscular Hemoglobin 31 pg (25-35) 31 pg (25-35) Mean Corpuscular Hemoglobin Concent 35 g/dL (31-37) 34 g/dL (31-37) Red Cell Distribution Width 14.9 % (11.5-14.5) 15.3 % (11.5-14.5) Platelet Count 209 x10^3/uL (140-400) 221 x10^3/uL (140-400) Neutrophils (%) (Auto) 74 % (31-73) 65 % (31-73) Lymphocytes (%) (Auto) 16 % (24-48) 23 % (24-48) Monocytes (%) (Auto) 4 % (0-9) 6 % (0-9) Eosinophils (%) (Auto) 5 % (0-3) 5 % (0-3) Basophils (%) (Auto) 1 % (0-3) 1 % (0-3) Neutrophils # (Auto) 7.2 x10^3uL (1.8-7.7) 5.9 x10^3uL (1.8-7.7) Lymphocytes # (Auto) 1.5 x10^3/uL (1.0-4.8) 2.2 x10^3/uL (1.0-4.8) Monocytes # (Auto) 0.4 x10^3/uL (0.0-1.1) 0.5 x10^3/uL (0.0-1.1) Eosinophils # (Auto) 0.5 x10^3/uL (0.0-0.7) 0.5 x10^3/uL (0.0-0.7) Basophils # (Auto) 0.1 x10^3/uL (0.0-0.2) 0.1 x10^3/uL (0.0-0.2) Sodium Level 143 mmol/L (136-145) 142 mmol/L (136-145) Potassium Level 3.4 mmol/L (3.5-5.1) 3.8 mmol/L (3.5-5.1) Chloride Level 106 mmol/L (98-107) 104 mmol/L (98-107) Carbon Dioxide Level 27 mmol/L (21-32) 31 mmol/L (21-32) Anion Gap 10 (6-14) 7 (6-14) Blood Urea Nitrogen 10 mg/dL (8-26) 12 mg/dL (8-26) Creatinine 1.3 mg/dL (0.7-1.3) 1.4 mg/dL (0.7-1.3) Estimated GFR (Cockcroft-Gault) 58.0 53.2 BUN/Creatinine Ratio 8 (6-20) Glucose Level 176 mg/dL (70-99) 127 mg/dL (70-99) Lactic Acid Level 2.5 mmol/L (0.4-2.0) 1.7 mmol/L (0.4-2.0) Calcium Level 8.9 mg/dL (8.5-10.1) 9.3 mg/dL (8.5-10.1) Total Bilirubin 1.1 mg/dL (0.2-1.0) Aspartate Amino Transf (AST/SGOT) 28 U/L (15-37) Alanine Aminotransferase (ALT/SGPT) 28 U/L (16-63) Alkaline Phosphatase 81 U/L (46-116) Creatine Kinase 175 U/L (39-308) Creatine Kinase MB (Mass) 1.9 ng/mL (0.0-3.6) Creatine Kinase MB Relative Index 1.1 % (0-4) Troponin I Quantitative < 0.017 ng/mL (0.000-0.055) 0.019 ng/mL (0.000-0.055) AU-Hkk-P-Type Natriuretic Peptide 3034 pg/mL (0-124) Total Protein 7.3 g/dL (6.4-8.2) Albumin 3.7 g/dL (3.4-5.0) Albumin/Globulin Ratio 1.0 (1.0-1.7) Influenza Type A Antigen Negative (NEGATIVE) Influenza Type B Antigen Negative (NEGATIVE) Magnesium Level 2.3 mg/dL (1.8-2.4) Triglycerides Level 258 mg/dL (0-150) Cholesterol Level 152 mg/dL (0-200) LDL Cholesterol, Calculated 80 mg/dL (0-100) VLDL Cholesterol, Calculated 52 mg/dL (0-40) Non-HDL Cholesterol Calculated 132 mg/dL (0-129) HDL Cholesterol 20 mg/dL (40-60) Cholesterol/HDL Ratio 7.6 Thyroid Stimulating Hormone (TSH) 3.551 uIU/mL (0.358-3.74) SHRUTHI GAYTAN MD October 23, 2016 14:54
[2016-10-23] MEDS: FUROSEMIDE 40 MG TABLET. PO SCH (16:53)
[2016-10-23] MEDS ORDERED: ATORVASTATIN CALCIUM 20 MG TABLET PO SCH (21:00)
[2016-10-24 03:00] VITALS: BP 111/75
[2016-10-24] MEDS: IV 1/2 NORMAL SALINE 1,000 ML IV SCH (03:59)
[2016-10-24 07:59] VITALS: BP 121/81
[2016-10-24] MEDS ORDERED: CLOPIDOGREL BISULFATE 75 MG TABLET PO SCH (08:00)
[2016-10-24] MEDS ORDERED: ASPIRIN ENTERIC COATED 81 MG TABLET.DR. PO SCH (08:00)
[2016-10-24] MEDS ORDERED: ASPIRIN ENTERIC COATED 325 MG TABLET.DR. PO SCH (08:00)
[2016-10-24] MEDS: NICOTINE 21MG PATCH. TD SCH (09:00)
--- NOTE | 2016-10-24 09:18 | PDOC ---
CARDIO Progress Notes Date and Time Date of Service 10/24/2016 Time of Evaluation 1000 Subjective Subjective: No Chest Pain, No shortness of breath, No Palpitations, No Dizziness Vitals Vitals Vital Signs Date Time Temp Pulse Resp B/P (MAP) Pulse Ox O2 Delivery O2 Flow Rate FiO2 10/24/16 08:15 95 Room Air 10/24/16 07:59 98.2 90 24 121/81 (94) 98.2 10/23/16 11:30 2.0 Weight Weight [ ] Input and Output Intake and Output Intake and Output 10/24/16 07:00 Intake Total 1380 ml Output Total 300 ml Balance 1080 ml Intake Oral 1380 ml Output Urine Total 300 ml # Voids 6 Microbiology Micro Microbiology 10/22/16 Blood Culture - Preliminary, Resulted NO GROWTH AFTER 1 DAY Physical Exam HEENT: Neck Supple W Full Motion Chest: Symmetric LUNGS: Clear to Auscultation Heart: S1S2, RRR (SR, no significant ectopies overnight) Abdomen: Soft N/T Extremities: No Calf Tenderness, Other (1+ bilateral LE pitting edema) Neurology: alert, oriented, follow commands Other Exams right wrist arteriotomy site intact without swelling or erythema, neurovascular status intact Assessment Assessment 1. Acute systolic/diastolic CHF: NYHA 2-3, Compensated 2. Cardiomyopathy: New. EF 10-15%. 3. CAD: New. S/P PCI/BMS to LAD. POD#1, doing well. 4. COPD: compensated 5. OMAR: noted in 2014 but would not use CPAP. 6. HTN: controlled 7. HLP 8. Tobaccoism: 2ppd 9. Obesity: BMI 37 11. Suspect CKD: likely stage 3. Recommendations 1. Lipitor, lisinopril, metoprolol tartrate, lasix, KCL, ASA/plavix 2. Significant and intensive discussion regarding compliance with his new medications, treatment compliance. Also discussed disease process 3. Significant and intensive discussion regarding lifestyle modification including weight loss, exercise, sodium restrictions, home BP monitoring, and fluid restriction 3. Entresto and lifevest would be ideal but would not be able to afford and with lack of health insurance. Consult SW/CM for healthcare outreach and disability. 4. Post cath instructions, CHF/cardiomyopathy literature to be provided by staff 5. Highly encouraged smoking cessation 6. Encouraged to follow up in our office in 3-4 weeks. 7. Need to be reevaluated in 3 months for AICD need if pt complies with optimization and treatments CLAUS PACHECO PANEL EDGE PAINTER October 24, 2016 09:18
[2016-10-24] MEDS: POTASSIUM CHLORIDE 20 MEQ TABLET.ER. PO SCH (09:25)
[2016-10-24] MEDS: METOPROLOL TART IMMED RELEASE 25 MG TABLET. PO SCH (09:26)
[2016-10-24] MEDS: DOXYCYCLINE HYCLATE 100 MG TABLET PO SCH (09:26)
[2016-10-24] MEDS: FUROSEMIDE 40 MG TABLET. PO SCH (09:26)
[2016-10-24] MEDS: PANTOPRAZOLE 40 MG TABLET.DR. PO SCH (09:26)
[2016-10-24] MEDS ORDERED: LISINOPRIL 5 MG TABLET. PO SCH (10:00)
[2016-10-24 10:11] LABS: CREATININE 1.4 mg/dL (0.7-1.3); GFR 53.2; POTASSIUM 3.3 mmol/L (3.5-5.1)
[2016-10-24 10:41] VITALS: BP 132/90
[2016-10-24 10:43] VITALS: BP 132/82
[2016-10-24] MEDS ORDERED: POTASSIUM CHLORIDE 20 MEQ TABLET.ER. PO ONE (10:45)
[2016-10-24] MEDS ORDERED: METO25TA4 PO (11:18)
[2016-10-24] MEDS ORDERED: CLOP75TA PO (11:18)
[2016-10-24] MEDS ORDERED: POTA20TA4 PO (11:18)
[2016-10-24] MEDS ORDERED: FURO40TA4 PO (11:18)
[2016-10-24] MEDS ORDERED: NITR0.4T SL (11:18)
[2016-10-24] MEDS ORDERED: ATOR40TA59 PO (11:18)
[2016-10-24] MEDS ORDERED: LISI-338 PO (11:18)
[2016-10-24] MEDS ORDERED: ASPI325T11 PO (11:18)
--- NOTE | 2016-10-24 11:56 | PDOC ---
PULMONARY PROGRESS NOTES Subjective feels better off oxygen Vitals Vital Signs Date Time Temp Pulse Resp B/P (MAP) Pulse Ox O2 Delivery O2 Flow Rate FiO2 10/24/16 10:43 96 132/82 10/24/16 10:41 98.2 23 95 Room Air 98.2 10/23/16 11:30 2.0 General: Alert, Oriented X4 Lungs: Clear Cardiovascular: S1 Abdomen: Soft Neuro Exam: Alert Extremities: No Edema Skin: Warm Labs Laboratory Tests Test 10/22/16 14:50 10/22/16 18:25 10/23/16 03:30 10/24/16 09:30 White Blood Count 9.7 x10^3/uL (4.0-11.0) 9.2 x10^3/uL (4.0-11.0) Red Blood Count 4.33 x10^6/uL (4.30-5.70) 4.51 x10^6/uL (4.30-5.70) Hemoglobin 13.4 g/dL (13.0-17.5) 13.8 g/dL (13.0-17.5) Hematocrit 38.3 % (39.0-53.0) 40.5 % (39.0-53.0) Mean Corpuscular Volume 88 fL (79-100) 90 fL (79-100) Mean Corpuscular Hemoglobin 31 pg (25-35) 31 pg (25-35) Mean Corpuscular Hemoglobin Concent 35 g/dL (31-37) 34 g/dL (31-37) Red Cell Distribution Width 14.9 % (11.5-14.5) 15.3 % (11.5-14.5) Platelet Count 209 x10^3/uL (140-400) 221 x10^3/uL (140-400) Neutrophils (%) (Auto) 74 % (31-73) 65 % (31-73) Lymphocytes (%) (Auto) 16 % (24-48) 23 % (24-48) Monocytes (%) (Auto) 4 % (0-9) 6 % (0-9) Eosinophils (%) (Auto) 5 % (0-3) 5 % (0-3) Basophils (%) (Auto) 1 % (0-3) 1 % (0-3) Neutrophils # (Auto) 7.2 x10^3uL (1.8-7.7) 5.9 x10^3uL (1.8-7.7) Lymphocytes # (Auto) 1.5 x10^3/uL (1.0-4.8) 2.2 x10^3/uL (1.0-4.8) Monocytes # (Auto) 0.4 x10^3/uL (0.0-1.1) 0.5 x10^3/uL (0.0-1.1) Eosinophils # (Auto) 0.5 x10^3/uL (0.0-0.7) 0.5 x10^3/uL (0.0-0.7) Basophils # (Auto) 0.1 x10^3/uL (0.0-0.2) 0.1 x10^3/uL (0.0-0.2) Sodium Level 143 mmol/L (136-145) 142 mmol/L (136-145) 141 mmol/L (136-145) Potassium Level 3.4 mmol/L (3.5-5.1) 3.8 mmol/L (3.5-5.1) 3.3 mmol/L (3.5-5.1) Chloride Level 106 mmol/L (98-107) 104 mmol/L (98-107) 101 mmol/L (98-107) Carbon Dioxide Level 27 mmol/L (21-32) 31 mmol/L (21-32) 33 mmol/L (21-32) Anion Gap 10 (6-14) 7 (6-14) 7 (6-14) Blood Urea Nitrogen 10 mg/dL (8-26) 12 mg/dL (8-26) 15 mg/dL (8-26) Creatinine 1.3 mg/dL (0.7-1.3) 1.4 mg/dL (0.7-1.3) 1.4 mg/dL (0.7-1.3) Estimated GFR (Cockcroft-Gault) 58.0 53.2 53.2 BUN/Creatinine Ratio 8 (6-20) Glucose Level 176 mg/dL (70-99) 127 mg/dL (70-99) 172 mg/dL (70-99) Lactic Acid Level 2.5 mmol/L (0.4-2.0) 1.7 mmol/L (0.4-2.0) Calcium Level 8.9 mg/dL (8.5-10.1) 9.3 mg/dL (8.5-10.1) 9.0 mg/dL (8.5-10.1) Total Bilirubin 1.1 mg/dL (0.2-1.0) Aspartate Amino Transf (AST/SGOT) 28 U/L (15-37) Alanine Aminotransferase (ALT/SGPT) 28 U/L (16-63) Alkaline Phosphatase 81 U/L (46-116) Creatine Kinase 175 U/L (39-308) Creatine Kinase MB (Mass) 1.9 ng/mL (0.0-3.6) Creatine Kinase MB Relative Index 1.1 % (0-4) Troponin I Quantitative < 0.017 ng/mL (0.000-0.055) 0.019 ng/mL (0.000-0.055) EK-Vsb-S-Type Natriuretic Peptide 3034 pg/mL (0-124) Total Protein 7.3 g/dL (6.4-8.2) Albumin 3.7 g/dL (3.4-5.0) Albumin/Globulin Ratio 1.0 (1.0-1.7) Influenza Type A Antigen Negative (NEGATIVE) Influenza Type B Antigen Negative (NEGATIVE) Magnesium Level 2.3 mg/dL (1.8-2.4) Triglycerides Level 258 mg/dL (0-150) Cholesterol Level 152 mg/dL (0-200) LDL Cholesterol, Calculated 80 mg/dL (0-100) VLDL Cholesterol, Calculated 52 mg/dL (0-40) Non-HDL Cholesterol Calculated 132 mg/dL (0-129) HDL Cholesterol 20 mg/dL (40-60) Cholesterol/HDL Ratio 7.6 Thyroid Stimulating Hormone (TSH) 3.551 uIU/mL (0.358-3.74) Laboratory Tests Test 10/24/16 09:30 Sodium Level 141 mmol/L (136-145) Potassium Level 3.3 mmol/L (3.5-5.1) Chloride Level 101 mmol/L (98-107) Carbon Dioxide Level 33 mmol/L (21-32) Anion Gap 7 (6-14) Blood Urea Nitrogen 15 mg/dL (8-26) Creatinine 1.4 mg/dL (0.7-1.3) Estimated GFR (Cockcroft-Gault) 53.2 Glucose Level 172 mg/dL (70-99) Calcium Level 9.0 mg/dL (8.5-10.1) Medications Active Scripts Medications Dose Route/Sig Max Daily Dose Days Date Category Aspirin Ec (Aspirin) 325 Mg Tablet.dr 325 Mg PO DAILYWBKFT 10/24/16 Rx Atorvastatin Calcium 40 Mg Tablet 40 Mg PO QHS 10/24/16 Rx Clopidogrel (Clopidogrel Bisulfate) 75 Mg Tablet 75 Mg PO DAILYWBKFT 10/24/16 Rx Klor-Con M20 (Potassium Chloride) 20 Meq Tab.er.prt 20 Meq PO DAILYWBKFT 10/24/16 Rx Nitrostat (Nitroglycerin) 0.4 Mg Tab.subl 0.4 Mg SL PRN Q5MIN PRN 10/24/16 Rx Metoprolol Tartrate 25 Mg Tablet 25 Mg PO BID 10/24/16 Rx Lisinopril 5 Mg Tablet 5 Mg PO DAILY 10/24/16 Rx Furosemide 40 Mg Tablet 40 Mg PO [id number] 10/24/16 Rx Omeprazole 40 Mg Capsule.dr 40 Mg PO DAILY 10/22/16 Reported Albuterol Sulfate Neb Soln (Albuterol Sulfate) 0.63 Mg/3 Ml Vial.neb 0.63 Mg NEB PRN Q4HRS PRN 10/22/16 Reported Impression . 1. Dyspnea with acute hypoxic respiratory failure related to acute systolic heart failure. The patient's ejection fraction is 10-15%. 2. Possible acute bronchitis. 3. Underlying tobaccoism, suspect chronic obstructive pulmonary disease. Plan . 1. Continue with diuresis. 2. doxycycline. 3. Cardiac catheterization done, s/p stent 4. ok with [facility] HAWK GONZÁLES MD October 24, 2016 11:56
[2016-10-24] MEDS ORDERED: ATORVASTATIN CALCIUM 40 MG TABLET. PO SCH (21:00)
--- NOTE | 2016-10-24 22:54 | DS ---
DATE OF DISCHARGE: 10/24/2016 CHIEF COMPLAINT: Shortness of breath, chest pain. HOSPITAL COURSE: The patient is a 51-year-old noncompliant gentleman with past medical history of CAD/CHF, who presented with shortness of breath. He related that "your Lasix is much better than mine". On further workup, he was found indeed in CHF with an echo showing an ejection fraction of 10-15% and global hypokinesis of the left ventricle. He was treated with IV Lasix with improvement of his symptoms. However, for his severe hypokinesis, he was taken to the laboratory geneticist on 10/23/2016 where a bare-metal stent was placed to the LAD. He recovered well from the procedure, was ready for discharge the following day. PHYSICAL EXAMINATION: VITAL SIGNS: From today, show a blood pressure of 132/82, heart rate of 96, respiratory rate at 23. GENERAL: This is a morbidly obese gentleman, alert and oriented, in no acute distress. LUNGS: Fairly clear bilaterally. HEART: Regular rate and rhythm. ABDOMEN: Has positive bowel sounds, soft, nontender. EXTREMITIES: Show no edema. DISCHARGE DATE: 10/24/2016. DISCHARGE DIAGNOSES: Coronary artery disease, status post catheterization; congestive heart failure, systolic. DISCHARGE DISPOSITION: To home. DISCHARGE CONDITION: Improved. DISCHARGE MEDICATIONS: Please refer to MAR. DISCHARGE INSTRUCTIONS: The patient has been recommended to receive a Life Vest, which he declined. He has been advised to follow up with Cardiology in 1 week. SHRUTHI GAYTAN MD DR: ANGEL/nts JOB#: [id number] / [id number]
[2016-10-25] MEDS ORDERED: POTASSIUM CHLORIDE 20 MEQ TABLET.ER. PO SCH (08:00)
== END 2016-10-24 12:30 | disposition home or self-care (01) | DRG 248 ==
LOC: ER 13:28 → 2 SOUTH 16:20
PROVIDERS: ADMIT Internal Medicine Hematology & Oncology; ATTEND Internal Medicine Hematology & Oncology
PROC: 02703DZ Dilation of Coronary Artery, One Artery with Intraluminal Device, Percutaneous Approach (ICD-10-PCS; principal; 2016-10-23)
PROC: 4A023N7 Measurement of Cardiac Sampling and Pressure, Left Heart, Percutaneous Approach (ICD-10-PCS; 2016-10-23)
PROC: B2151ZZ Fluoroscopy of Left Heart using Low Osmolar Contrast (ICD-10-PCS; 2016-10-23)
PROC: B2111ZZ Fluoroscopy of Multiple Coronary Arteries using Low Osmolar Contrast (ICD-10-PCS; 2016-10-23)
DX: I11.0 Hypertensive heart disease with heart failure (principal); J96.01 Acute respiratory failure with hypoxia; J44.1 Chronic obstructive pulmonary disease with (acute) exacerbation; I50.43 Acute on chronic combined systolic (congestive) and diastolic (congestive) heart failure; E11.9 Type 2 diabetes mellitus without complications; E66.9 Obesity, unspecified; E78.5 Hyperlipidemia, unspecified; F17.210 Nicotine dependence, cigarettes, uncomplicated; G47.00 Insomnia, unspecified; G47.33 Obstructive sleep apnea (adult) (pediatric); I25.10 Atherosclerotic heart disease of native coronary artery without angina pectoris; M19.90 Unspecified osteoarthritis, unspecified site; F12.90 Cannabis use, unspecified, uncomplicated; I42.9 Cardiomyopathy, unspecified; K21.9 Gastro-esophageal reflux disease without esophagitis; Z68.37 Body mass index [BMI] 37.0-37.9, adult; Z82.49 Family history of ischemic heart disease and other diseases of the circulatory system; Z91.19 Patient's noncompliance with other medical treatment and regimen; Z98.61 Coronary angioplasty status
CPT/HCPCS: 93458; 99285; C8929; 36415; 71020; 80048; 80053; 80061; 82553; 83605; 83735; 83880; 84443; 84484; 85027; 87040; 87804; 93005; 94640; 96374; 99406; C1769; C1877; C1887; C1892; J0583; J2250; J3010; J3490; J7620; Q0144; Q9950